=== PATIENT | female | born 1965 | race Two or more races ===

== ENCOUNTER 2016-04-09 09:06 | Emergency (ER) | payer OTHER ==
[~2016-04-09] VITALS: Ht 157.5 cm; Wt 58.1 kg
[2016-04-09 09:48] VITALS: BP 131/88
[2016-04-09] MEDS ORDERED: IPRATROPIUM BROM 0.5 MG/2.5ML INH SOL NEB ONE (10:30)
[2016-04-09] MEDS ORDERED: ALBUTEROL SULF 2.5 MG/0.5ML(0.5%) NEB SOLN NEB ONE (10:30)
[2016-04-09] MEDS ORDERED: methylPREDNISolone SOD SUCC 125 MG/2 ML VL IM ONE (10:30)
[2016-04-09] MEDS ORDERED: cefTRIAXone SOD 1,000 MG VL IM ONE (10:30)
[2016-04-09 11:31] LABS: Basophils # (auto) 0.1 uL; Basophils % (auto) 1.2 % (0.0-2.0); Eosinophils # (auto) 0.1 uL; Eosinophils % (auto) 2.6 % (0.0-7.0); Hemoglobin 14.3 g/dL (12.2-16.2); Lymphocytes # (auto) 2.3 uL; Lymphocytes % (auto) 43.9 % (10.0-50.0); Mean Corpuscular Hgb Conc. 31.9 g/dL (32.0-36.0); Mean Corpuscular Volume 91.1 fL (80.0-100.0); Mean Platelet Volume 8.5 fL (7.4-10.4); Monocytes # (auto) 0.4 uL; Monocytes % (auto) 7.5 % (0.0-12.0); Neutrophils # (auto) 2.3 uL; Neutrophils % (auto) 44.8 % (37.0-80.0); Platelet Count (auto) 244 10^3/uL (140-450); Red Cell Distribution Width 13.6 % (11.6-16.0); White Blood Cell 5.2 10^3/uL (4.4-10.8)
[2016-04-09 11:35] LABS: Albumin 4.2 g/dL (3.4-5.0); BUN/Creatinine Ratio 16.9; Bilirubin, Total 0.2 mg/dL (0.2-1.0); Calcium 8.9 mg/dL (8.5-10.1); Total Protein 8.1 g/dL (6.4-8.2)
== END 2016-04-09 12:12 | disposition home or self-care (01) ==
LOC: ER 09:07
DX: J20.9 Acute bronchitis, unspecified (principal); B34.9 Viral infection, unspecified; R51 Headache; R53.1 Weakness
CPT/HCPCS: 36415; 71020; 80053; 85025; 87400; 94640; 96372; 99285; J0696; J2930